=== PATIENT | female | born 1960 | race Two or more races ===

== ENCOUNTER → 2018-07-31 | Outpatient (CLI) | payer OTHER ==
[~2018-07-31] MED LIST: SECRETIN 16 MCG ONE
== END | disposition home or self-care (01) ==
LOC: RAD 07:25
PROVIDERS: ATTEND Nurse Practitioner Family
DX: K86.1 Other chronic pancreatitis (principal); R10.11 Right upper quadrant pain; R74.8 Abnormal levels of other serum enzymes; Z90.49 Acquired absence of other specified parts of digestive tract
CPT/HCPCS: 74181; J2850